=== PATIENT | female | born 1935 | race Caucasian/White ===

== ENCOUNTER 2017-09-19 08:13 | Inpatient (IN) | payer OTHER ==
[2017-08-16 13:43] VITALS: BMI 39.0
--- NOTE | 2017-08-16 14:14 | PAT Medication Instructions ---
Service Date Aug 16, 2017. Current Home Medication List Diphenhydramine Hcl (Benadryl Allergy), 1 CAP PO PRN Losartan Potassium (Cozaar), 100 MG PO QAM Meloxicam (Mobic), 15 MG PO DAILY Simethicone (Gas-X), 1 TAB PO PRN Medication Instructions For Your Scheduled Surgery - Hold the following medications 10 days prior to surgery per surgeon's instructions: Meloxicam (Mobic), 15 MG PO DAILY - Hold the following medications the morning of surgery: Losartan Potassium (Cozaar), 100 MG PO QAM Diphenhydramine Hcl (Benadryl Allergy), 1 CAP PO PRN Simethicone (Gas-X), 1 TAB PO PRN *Nothing to eat or drink after midnight* If you have any questions please call us at [phone] or [phone] or [phone]
[2017-08-16 14:54] LABS: BASO ABS # 0.07 K/uL (0-0.2); EOS % 2.4 %; EOS ABS # 0.17 K/uL (0-0.5); HEMATOCRIT 40.6 % (37-47); HEMOGLOBIN 13.5 g/dL (12.0-16.0); IG# 0.01 K/uL (0.00-0.02); LYMPH % 35.6 %; LYMPH ABS # 2.49 K/uL (1.2-3.4); MEAN CELL VOLUME 92.5 fL (80-100); MEAN CORPUSCULAR HEMOGLOBIN 30.8 pg (25-34); MEAN CORPUSCULAR HGB CONC 33.3 g/dl (32-36); MEAN PLATELET VOLUME 12.7 fL (7.4-10.4); MONO % 7.9 %; MONO ABS # 0.55 K/uL (0.11-0.59); NEUT ABS # 3.71 K/uL (1.4-6.5); PLATELET COUNT 196 K/uL (130-400); RED CELL DISTRIBUTION WIDTH CV 13.3 % (11.5-14.5)
[2017-08-16 15:05] LABS: PTT PATIENT 26.6 SECONDS (21.0-31.0)
--- NOTE | 2017-08-16 15:11 | DIAGNOSTIC IMAGING REPORT ---
CHEST 2 VIEWS ROUTINE CLINICAL HISTORY: PAT preoperative evaluation COMPARISON STUDY: No previous studies for comparison. FINDINGS: The bones soft tissues and hemidiaphragms are normal. The cardiomediastinal silhouette is normal. The lungs are clear. The pulmonary vasculature is normal. IMPRESSION: Negative chest. The above report was generated using voice recognition software. It may contain grammatical, syntax or spelling errors. Electronically signed by: Mando Tinoco M.D. 08/16/2017 3:10 PM Dictated Date/Time: 08/16/2017 3:10 PM
[2017-08-16 16:52] LABS: BLOOD UREA NITROGEN 22 mg/dl (7-18); CALCIUM 9.4 mg/dl (8.5-10.1); CARBON DIOXIDE 25 mmol/L (21-32); CREATININE 1.05 mg/dl (0.60-1.20); GLUCOSE 90 mg/dl (70-99); POTASSIUM 3.9 mmol/L (3.5-5.1); SODIUM 138 mmol/L (136-145)
--- NOTE | 2017-09-14 22:45 | HISTORY & PHYSICAL EXAMINATION ---
DATE OF ADMISSION: 09/19/2017 CHIEF COMPLAINT: Right knee pain. HISTORY OF PRESENT ILLNESS: The patient is a 81-year-old female who presents for surgical treatment of her right knee. She had a long history of knee problems and had her left knee replaced back in 2011. She had done well with that. Over the years, she has continued to have persistent and limiting right knee pain and discomfort. She has had global pain. It is very stiff as well. The more she walks, the more it hurts, and the more she limps. She has nighttime pain. She would like to have her right knee replaced. PAST MEDICAL HISTORY: 1. Hypertension. 2. Obesity with BMI 39. 3. Osteoarthritis. 4. GLUTEN SENSITIVITY. PAST SURGICAL HISTORY: Includes left knee replacement on 04/13/2012. ALLERGIES: None. SHE HAS GLUTEN SENSITIVITY. CURRENT MEDICINES: Include: 1. Meloxicam once a day. 2. Losartan. 3. Potassium. SOCIAL HISTORY: A 81-year-old female. She is . She lives in [facility]. Her is limited in his assistance due to Alzheimer/Parkinson disease. FAMILY HISTORY: Negative for blood clots, heart disease or diabetes. REVIEW OF SYSTEMS: Negative for diabetes, neurologic problems, vascular problems, bleeding disorders. No chest pain or shortness of breath. No history of DVT or PE. PHYSICAL EXAMINATION: GENERAL: Shows a healthy pleasant elderly female, who looks to be in pretty good health. HEENT: Benign. NECK: Supple. No lymphadenopathy. LUNGS: Clear to auscultation. HEART: Has a regular rate and rhythm. ABDOMEN: Soft, nontender, nondistended. EXTREMITIES: Grossly neurovascularly intact except as follows: Examination of the right knee reveals patient ambulates independently. She has got varus alignment to her knee. She has a fairly stiff knee with about 10 degree flexion contracture, can only flex to about 90 degrees. No instability. No pain with hip motion. X-RAYS: X-ray of the right knee reviewed. It shows advanced right knee DJD. She has complete loss of her medial joint space. She has got some tibiofemoral subluxation. She has got osteophytes in all 3 compartments. ASSESSMENT: A 81-year-old white female, 5 years out from left knee replacement with advanced right knee degenerative joint disease. She has failed conservative treatment and would like to have her right knee replaced. She has done well from the left knee standpoint. PLAN: We will take her to the operating room and do right total knee replacement. The risks and benefits of this procedure were explained to patient including but not limited to DVT, PE, , infection, neurological injury, vascular injury, bleeding problem, pain, limited range of motion, stiffness, failure to relieve her symptoms, incomplete relief of symptoms, need for further surgery in the future, fracture, leg length inequality, nerve palsy, etc. The patient understands and desires to proceed. Informed consent was obtained. We did talk to her about holding her Meloxicam 10 days preop. She is planning to be discharged to home and has no [facility]. Her daughter is going to come and stay with her for a while to assist in her care as well as her 's care.
[~2017-09-19] VITALS: Ht 157.5 cm; Wt 96.7 kg
[2017-09-19] VITALS (7 sets, daily range): BP systolic 119–176; BP diastolic 69–89; PULSE 87–98; TEMP 36.5–36.9; O2SAT 93–97; Ht 157.5 cm; Wt 96.7 kg
[~2017-09-19 08:13] MED LIST: ACETAMINOPHEN 500 MG TAB PO SCH; BUPIVACAINE 0.5 % 5 MG/1 ML PF 10ML VIAL ONE; BUPIVACAINE LIPOSOME 266 MG, BUPIVACAINE/EPINEPHRINE INJ 50 ML, SODIUM CHLORIDE 0.9% PF... INFIL SCH; CEFAZOLIN 2000MG IV PUSH 10 ML IV SCH; DIPH25CA65 PO; FAMOTIDINE 20 MG TAB PO SCH; GABAPENTIN 300 MG CAP PO SCH; LACTATED RINGER'S 1000ML 1,000 ML IV SCH; LACTATED RINGER'S 1000ML 500 ML IV SCH; LACTATED RINGER'S 1000ML IV SCH; LOSA1TAB38 PO; MELO7.5T5 PO; METOCLOPRAMIDE HCL 10 MG TAB PO SCH; SCOPOLAMINE 1.5 MG TDSY TD SCH; SIME80CH PO; TRANEXAMIC ACID INJ 1,000 MG in SYRINGE 0 ML IV SCH
--- NOTE | 2017-09-19 08:44 | History & Physical Bridge Note ---
H&P Re-Evaluation Bridge Note: I have examined the patient, reviewed the History & Physical and in the interval since the performance of the History & Physical I have noted the following changes of clinical significance: No changes noted
[2017-09-19] MEDS ORDERED: MIDAZOLAM HCL 1 MG/ML 2ML VIAL ONE ×2 (09:17→12:28)
[2017-09-19] MEDS ORDERED: ATROPINE SULFATE 0.1 MG/ML 5ML SYR IV PRN (10:00)
[2017-09-19] MEDS ORDERED: ONDANSETRON INJ 2 MG/ML 2 ML VIAL IV PRN (10:00)
[2017-09-19] MEDS ORDERED: EpHEDrine SULFATE INJ 50 MG/ML AMP IV PRN (10:00)
[2017-09-19] MEDS ORDERED: SODIUM CHLORIDE 0.9% PF 50 ML VIAL ONE (11:15)
[2017-09-19] MEDS ORDERED: BACITRACIN 50000 UNIT VIAL ONE (11:15)
[2017-09-19] MEDS ORDERED: BUPIVACAINE/EPINEPHRINE 0.25% 1:200,000 30 ML VIAL ONE (11:15)
[2017-09-19] MEDS ORDERED: BUPIVACAINE LIPOSOME 1/3% 266 MG/20 ML VIAL INFIL ONE (11:15)
[2017-09-19] MEDS ORDERED: FENTANYL CITRATE INJ 50 MCG/1 ML 2 ML VIAL ONE (11:59)
[2017-09-19] MEDS ORDERED: PHENYLEPHRINE 100MCG/ML 5ML SYR ONE (12:02)
[2017-09-19] MEDS ORDERED: LIDOCAINE HCL 2% 2 ML VIAL (20MG/ML) ONE (12:02)
[2017-09-19] MEDS ORDERED: PROPOFOL IV EMULSION 10 MG/ML 20 ML VIAL IV ONE (12:02)
--- NOTE | 2017-09-19 13:16 | [facility] Post Operative Brief Note ---
Immediate Operative Summary Operative Date Sep 19, 2017. Pre-Operative Diagnosis Advanced Right Knee Degenerative Joint Disease Post-Operative Diagnosis Advanced Right Knee Degenerative Joint Disease Procedure(s) Performed Right Total Knee Arthroplasty, Cemented Surgeon Dr. Mckeon Principal Technical Writer Surgeon(s) Jai Brown PA-C Estimated Blood Loss 50 mL Findings Right Knee DJD Fluids (cc crystalloids) 1800 cc Specimens A: Right Knee Bone and Tissue Drains None Anesthesia Spinal Complication(s) None Disposition Recovery Room / PACU
[2017-09-19] MEDS ORDERED: METOCLOPRAMIDE HCL INJ 5 MG/ML 2 ML VIAL IV PRN (13:30)
[2017-09-19] MEDS ORDERED: ZOLPIDEM TARTRATE 5 MG TAB PO PRN (13:30)
[2017-09-19] MEDS ORDERED: BISACODYL 10 MG SUPP PR PRN (13:30)
[2017-09-19] MEDS ORDERED: MAGNESIUM HYDROXIDE SUSP 30 ML UDC PO PRN (13:30)
[2017-09-19] MEDS ORDERED: CEFAZOLIN IV 2,000 MG in DEXTROSE 5% 50ML 50 ML IV SCH (13:30)
[2017-09-19] MEDS ORDERED: SILVER SULFADIAZINE 1% CR 50 GM JAR EXT PRN (13:30)
--- NOTE | 2017-09-19 13:54 | DIAGNOSTIC IMAGING REPORT ---
R KNEE 1 OR 2 VIEWS ROUTINE CLINICAL HISTORY: AP/LATERAL IN PACU RIGHT KNEE postoperative COMPARISON: None. DISCUSSION: Total right knee replacement. Good contact between prosthetic and underlying bone. Expected soft tissue postoperative changes. IMPRESSION: Anatomic alignment status post right knee arthroplasty. The above report was generated using voice recognition software. It may contain grammatical, syntax or spelling errors. Electronically signed by: Mando Tinoco M.D. 09/19/2017 1:52 PM Dictated Date/Time: 09/19/2017 1:52 PM
--- NOTE | 2017-09-19 13:57 | Anesthesiology Progress Note ---
Anesthesia Post Op Note Date & Time Sep 19, 2017 at 13:57 Vital Signs Pain Intensity: 0 Vital Signs Past 12 Hours Date Time Temp Pulse Resp B/P (MAP) Pulse Ox O2 Delivery O2 Flow Rate FiO2 09/19/17 13:23 36.1 94 16 97/47 94 Nasal Cannula 3 09/19/17 11:05 88 18 154/93 (113) 100 Oxymask 10 09/19/17 10:55 88 16 153/79 (103) 100 Oxymask 10 09/19/17 10:45 99 16 155/69 (97) 100 Oxymask 10 09/19/17 10:37 98 16 151/72 (98) 100 Oxymask 10 09/19/17 10:13 97 16 155/74 (101) 100 Oxymask 10 09/19/17 08:41 36.9 98 20 176/89 Room Air Notes Mental Status: alert / awake / arousable, participated in evaluation Pt Amnestic to Procedure: Yes Nausea / Vomiting: adequately controlled Pain: adequately controlled Airway Patency, RR, SpO2: stable & adequate BP & HR: stable & adequate Hydration State: stable & adequate Neuraxial Anesthesia: was administered, sensory block is resolving Anesthetic Complications: no major complications apparent
[2017-09-19] MEDS ORDERED: PHENYLEPHRINE HCL INJ 10 MG/ML VIAL ONE (13:59)
[2017-09-19] MEDS ORDERED: EpHEDrine SULFATE INJ 50 MG/ML AMP ONE (13:59)
[2017-09-19] MEDS: FENTANYL CITRATE INJ 50 MCG/1 ML 2 ML VIAL IV PRN ×4 (14:03→14:19)
--- NOTE | 2017-09-19 14:21 | OPERATIVE REPORT ---
DATE OF OPERATION: 09/19/2017 SURGEON: Jake Mckeon MD PACKING ATTENDANT: MYLES Curiel PREOPERATIVE DIAGNOSIS: Right knee degenerative joint disease. POSTOPERATIVE DIAGNOSIS: Same. PROCEDURE PERFORMED: Right cemented posterior stabilized total knee arthroplasty. COMPLICATIONS: None. ESTIMATED BLOOD LOSS: 50 mL FLUID REPLACEMENT: 1800 mL crystalloid fluid replacement. TOURNIQUET TIME: 54 minutes at 300 mmHg. ANESTHESIA: Spinal with adductor canal block. DRAINS: None. SPECIMENS: Right knee sent for pathology. OPERATIVE INDICATIONS: The patient is a 81-year-old very active and healthy female who has had a long history of knee problems. She underwent a left knee replacement 5 years ago and has done well from that. Over the past several years, she has developed progressive and increasing pain in her right knee. She failed conservative treatment. X-rays show advanced right knee DJD. She elected to proceed with total knee arthroplasty. OPERATIVE FINDINGS: Operative findings revealed advanced right knee DJD. She had extensive grade 4 changes in all 3 compartments, most severe in the medial side. She had osteophytes in all 3 compartments. She had a significant flexion contracture about 10-15 degrees. A very stiff knee with only about 90 degrees of knee bend. OPERATIVE IMPLANTS: Operative implants consisted of: 1. Biomet Vanguard size 57.5 right posterior stabilized femoral component. 2. Biomet size 63 tibial tray. 3. A 12-mm posterior stabilized polyethylene insert. 4. A 28 x 8 all poly patella. OPERATIVE PROCEDURE: The patient taken to the operating room, identified and placed on the operating table in supine position. All contact areas were appropriately padded. IV antibiotics were provided by the anesthesia team. A spinal anesthetic and adductor canal block had been provided in the holding area. Baltazar catheter was placed in sterile fashion. A right thigh tourniquet was then placed and the right lower extremity was then prepped and draped in the usual sterile fashion. The right leg was elevated and exsanguinated with an Esmarch and tourniquet was placed at 300 mmHg. An anterior approach to the right knee was then performed through a longitudinal incision centered over the patella. Sharp dissection was carried out through the subcutaneous tissues down to the level of the extensor mechanism. A medial parapatellar arthrotomy incision was made. Subperiosteal dissection was carried out medially. The fat pad was resected from beneath the patellar tendon. The lateral patellofemoral ligament was released. The patella was everted and knee was flexed. The osteophytes were taken off the distal femur. The ACL and PCL were then released from the distal femur and the tibia subluxated anteriorly. The external tibial alignment jig was then placed in the anterior face of the tibia and adjusted about 14 mm medially. Proximal tibial cut was made to remove about 2 mm of bone from the most deficient aspect of the medial tibial plateau. Some osteophytes were taken off medially and posteromedially. Tibia was sized to a size 63. Attention was then drawn to the femur. The distal femur was entered with a sharp drill. Intramedullary guide was placed. A right 5-degree valgus cutting guide was placed. The distal femoral cutting block was pinned in place. Distal femoral cut was made to take an additional 3 mm of bone off the distal femur. The femur was then sized to a size 57.5. We did downsize this slightly. The AP cutting block was pinned parallel to the epicondylar axis, which was 4 degrees of external rotation. The anterior cut, anterior chamfer, posterior cut, posterior chamfer cuts were made. Box cutting guide was placed and adjusted slightly lateral and the box cut was made. The knee was flexed. The remnants of the medial and lateral menisci were excised. The osteophytes were taken off the posterior aspect of the femur. A trial femoral component was placed. Tibial tray was pinned in maximum external rotation and drill and stem punch were used to create defect in proximal tibia for the tibial tray. The knee was then trialed and the 12-mm insert fit most appropriately. Attention was then drawn to the patella. The patella was cleaned of all soft tissues. Patella thickness measured 19 mm and was cut down to 13. It was sized to a size 28 patella. Lug holes were drilled for the 28 patella. Lateral osteophyte was removed. Patella button was placed. Knee was taken through range of motion and patella tracked nicely with no thumbs test. Attention was then drawn toward placement of the permanent components. All trial components were removed. Bone plug was placed in the distal femur to limit blood loss. A double batch of Palacos G cement was mixed. A right size 57.5 posterior stabilized femoral component, size 63 tibial tray, 12 mm posterior stabilized polyethylene insert, and a 28 x 8 all poly patella were then cemented in place. Knee was brought out into full extension until cement hardened. A final cement check was then performed. Pericapsular tissues were injected with a total of 100 mL of a combination of 20 mL of Exparel, 30 mL of normal saline, 50 mL of 0.25% Marcaine with epinephrine. The patient did receive 1 gram of tranexamic acid. The tourniquet was then let down for a final tourniquet time of 54 minutes. Hemostasis was assured with use of electrocautery. The wound was once again irrigated. The extensor mechanism was then closed with a combination of #1 PDS suture and #1 Vicryl suture in a [id number] fashion. Extensor mechanism was checked and found to be intact. The subcutaneous tissues were then closed with 2-0 Dexon suture in a buried interrupted fashion. Skin was closed with skin ruby. Leg was then cleaned and dried and a sterile dressing of Xeroform, 4 x 4's, sterile cast padding and Alejandro bandage were applied. The patient then transferred to the recovery room in stable condition. The patient tolerated the procedure well without complications. All needle and sponge counts were correct at the end of the operation. I attest to the content of the Intraoperative Record and any orders documented therein. Any exception s are noted below.
[2017-09-19] MEDS: HYDROmorphone INJ 0.5 MG/0.5 ML SYR IV PRN ×2 (14:24→14:44)
--- NOTE | 2017-09-19 15:51 | PROGRESS NOTE ---
DATE: 09/19/2017 DATE: 09/19/2017 SUBJECTIVE: A 81-year-old female postop from a right knee replacement. She is doing well. Pain is controlled. Denies any chest pain or shortness of breath. Not feeling dizzy or lightheaded. OBJECTIVE: VITAL SIGNS: Temperature 37.4. Vital signs stable. PHYSICAL EXAMINATION: GENERAL: Reveals a pleasant elderly female. She is lying in bed, looks pretty comfortable. She is just in the recovery room waiting for a room availability. LUNGS: Clear to auscultation. HEART: Regular rate and rhythm. ABDOMEN: Soft, nontender, nondistended. EXTREMITY EXAMINATION: Grossly neurovascularly intact except as follows: Examination of the right leg reveals the dressing to be clean, dry and intact. Leg is well aligned. She can dorsiflex and plantarflex her foot appropriately. She is neurologically intact. X-RAYS: X-rays of the right knee from recovery room were reviewed. It shows right cemented posterior stabilized total knee arthroplasty. Components are in good position. No signs of problems. She has got a good distal pulse. Brisk refill. ASSESSMENT: A 81-year-old white female postop from a right knee replacement, doing well. Pain is controlled. She is neurologically intact. PLAN: 1. DVT prophylaxis including thigh-high TEDs, SCDs, and aspirin twice a day. 2. PT/OT. Weight bear as tolerated. Right total knee protocol. 3. Pain control. Doing pretty well with current pain regimen. 4. IV antibiotics x24 hours. 5. Disposition. Plan to discharge to home likely with some home health and family assistance once medically stable.
[2017-09-19] MEDS: CHECK SCOPOLAMINE PATCH PLACEMENT SCH ×2 (16:08→23:41)
[2017-09-19] MEDS: KETOROLAC TROMETHAMINE 15 MG/ML VIAL IV. SCH ×2 (16:23→21:52)
[2017-09-19] MEDS: D5W AND 1/2NSS + 20MEQ KCL 1,000 ML IV SCH (16:24)
[2017-09-19] MEDS: ACETAMINOPHEN 500 MG TAB PO SCH ×2 (16:24→23:42)
[2017-09-19] MEDS: HYDROmorphone INJ 1 MG/ML SYR IV PRN (16:25)
[2017-09-19] MEDS: TRAMADOL HCL 50 MG TAB PO PRN (17:29)
[2017-09-19] MEDS: FERROUS GLUCONATE 324 MG TAB PO SCH (17:31)
[2017-09-19] MEDS: CEFAZOLIN IV 2,000 MG in SYRINGE 0 ML IV SCH (19:50)
[2017-09-19] MEDS ORDERED: TRANEXAMIC ACID INJ 1,000 MG in SODIUM CHLORIDE 0.9% 100ML 100 ML IV SCH (20:00)
[2017-09-19] MEDS: ONDANSETRON INJ 2 MG/ML 2 ML VIAL IV PRN (20:13)
[2017-09-19] MEDS: SENNA 8.6 MG TAB PO SCH (21:51)
[2017-09-19] MEDS: ASPIRIN 325 MG ECTAB PO SCH (21:51)
[2017-09-19] MEDS: DOCUSATE SODIUM 100 MG CAP PO SCH (21:51)
[2017-09-20] MEDS: D5W AND 1/2NSS + 20MEQ KCL 1,000 ML IV SCH ×2 (01:55→11:16)
[2017-09-20] MEDS: TRAMADOL HCL 50 MG TAB PO PRN ×4 (02:04→21:46)
[2017-09-20 03:30] VITALS: BP 105/64; PULSE 76; TEMP 36.7; O2SAT 95
[2017-09-20] MEDS: KETOROLAC TROMETHAMINE 15 MG/ML VIAL IV. SCH (03:34)
[2017-09-20] MEDS: CEFAZOLIN IV 2,000 MG in SYRINGE 0 ML IV SCH (03:35)
[2017-09-20 06:46] LABS: HEMATOCRIT 32.8 % (37-47); HEMOGLOBIN 10.8 g/dL (12.0-16.0); MEAN CELL VOLUME 93.2 fL (80-100); MEAN CORPUSCULAR HEMOGLOBIN 30.7 pg (25-34); MEAN CORPUSCULAR HGB CONC 32.9 g/dl (32-36); MEAN PLATELET VOLUME 11.4 fL (7.4-10.4); PLATELET COUNT 142 K/uL (130-400); RED CELL DISTRIBUTION WIDTH CV 13.2 % (11.5-14.5); RED CELL DISTRIBUTION WIDTH SD 44.5 fL (36.4-46.3); WHITE BLOOD COUNT 7.63 K/uL (4.8-10.8)
[2017-09-20] MEDS: CHECK SCOPOLAMINE PATCH PLACEMENT SCH ×2 (07:18→15:33)
[2017-09-20] MEDS: ACETAMINOPHEN 500 MG TAB PO SCH ×2 (07:18→15:35)
[2017-09-20 07:20] LABS: CALCIUM 7.9 mg/dl (8.5-10.1); CREATININE 1.5 mg/dl (0.60-1.20)
[2017-09-20 08:03] VITALS: BP 134/82; PULSE 72; TEMP 36.4; O2SAT 98
[2017-09-20 08:14] VITALS: O2SAT 98
[2017-09-20] MEDS: DOCUSATE SODIUM 100 MG CAP PO SCH ×2 (08:43→21:46)
[2017-09-20] MEDS: ASPIRIN 325 MG ECTAB PO SCH ×2 (08:43→21:46)
[2017-09-20] MEDS: LOSARTAN POTASSIUM 50 MG TAB PO SCH (08:43)
[2017-09-20] MEDS: MULTIVITAMIN TAB PO SCH (08:43)
[2017-09-20] MEDS: FERROUS GLUCONATE 324 MG TAB PO SCH ×3 (08:43→17:33)
[2017-09-20] MEDS: PANTOprazole SOD 40 MG TAB PO SCH (08:43)
--- NOTE | 2017-09-20 09:17 | Anesthesiology Progress Note ---
Anesthesia Post Op Note Date & Time Sep 20, 2017 at 09:16 Vital Signs Pain Intensity: 0.0 Vital Signs Past 12 Hours Date Time Temp Pulse Resp B/P (MAP) Pulse Ox O2 Delivery O2 Flow Rate FiO2 09/20/17 08:14 98 Room Air 09/20/17 08:03 36.4 72 18 134/82 (99) 98 Room Air 09/20/17 07:15 Room Air 09/20/17 03:30 36.7 76 18 105/64 (78) 95 Room Air 09/19/17 23:30 Room Air 09/19/17 23:05 36.6 89 18 119/72 (88) 95 Room Air Notes Mental Status: alert / awake / arousable, participated in evaluation Pt Amnestic to Procedure: Yes Nausea / Vomiting: adequately controlled Pain: adequately controlled Airway Patency, RR, SpO2: stable & adequate BP & HR: stable & adequate Hydration State: stable & adequate Neuraxial Anesthesia: sensory block resolved Anesthetic Complications: no major complications apparent
--- NOTE | 2017-09-20 09:54 | Clinical Documentation Query ---
CLINICAL DOCUMENTATION QUERY 81-y/o female who has undergone right TKR. POD #1 Creatinine has risen to 1.50 from 1.05. In your clinical opinion is this patient being managed for: ( x ) CRISTIAN treated with continued PRP monitoring and IVF's. ( ) Not Agree ( ) Other explanation of clinical findings (Please Explain) ( ) Unable to determine (Please Define) ( ) Need to Discuss The medical record reflects the following clinical findings, treatment, and risk factors. Clinical Indicators: As above. EBL 250 ml's, Low urine output 1st 8 hours after surgery of 200 ml's. Treatment: repeat PRP for 09/21, IVF's, Risk Factors: Age, surgery, Please clarify and document your clinical opinion in the progress notes and discharge summary. Terms such as "probable", "suspected", "likely", "questionable", "possible", or "still to be ruled out" are acceptable. IF IN AGREEMENT, YOU MUST DOCUMENT ABOVE DIAGNOSTIC STATEMENT IN DAILY PROGRESS NOTES AND DISCHARGE SUMMARY. This document is not part of the patient's record. AKIAcute Renal/Kidney Injury is defined as a rapid and usually reversible decline in GFR that may occur in the setting of normal renal function or with preexisting renal disease. Acute renal failure may present with a range of abnormal parameters. Current RIFLE criteria notes the following: "Patients can be classified either by GFR or by UO criteria." According to RIFLE, CRISTIAN is defined as any of the following: SCr increased 2-3x baseline or GFR decreased >50% or <0.5mL/kg/h > 12 hrs The EKTA criteria differ from the RIFLE criteria in several ways. The RIFLE criteria are defined as changes within 7 days, while the EKTA criteria suggest using 48 hours. The EKTA classification includes less severe injury in the criteria and EKTA also avoids using the glomerular filtration rate as a marker in CRISTIAN, as there is no dependable way to measure glomerular filtration rate and estimated glomerular filtration rate are unreliable in CRISTIAN. The criteria: Abrupt (within 48 h) reduction in kidney function currently defined as an absolute increase in serum creatinine of 0.3 mg/dL or more (=26.4 umol/L) or a percentage increase in serum creatinine of 50% or more (1.5-fold from baseline) or a reduction in urine output (documented oliguria of < 0.5 mL/kg/h for >6 h) In 2012 the Kidney Disease Improving Global Outcomes (KDIGO) released their clinical practice guidelines for acute kidney injury (CRISTIAN), which build off of the RIFLE criteria and the EKTA criteria. KDIGO defines CRISTIAN as any of the following: Increase in serum creatinine by 0.3mg/dL or more within 48 hours or increase in serum creatinine to 1.5 times baseline or more within the last 7 days or urine output less than 0.5 mL/kg/h for 6 hours Thank You, Ilya Vaca, RN [phone]
[2017-09-20 11:29] VITALS: BP 128/80; PULSE 74; TEMP 36.5; O2SAT 95
--- NOTE | 2017-09-20 14:29 | PROGRESS NOTE ---
DATE: 09/20/2017 SUBJECTIVE: A 81-year-old white female postop day #1 from a right knee replacement. She is doing well. Pain is controlled. Therapy went pretty well. No chest pain or shortness of breath. Not feeling dizzy or lightheaded. OBJECTIVE: VITAL SIGNS: Temperature 36.5. Vital signs stable. GENERAL: Reveals as a pleasant elderly female. She is sitting up in bed, looks pretty comfortable. EXTREMITIES: Examination of the right leg reveals the leg to be well aligned. She can dorsiflex and plantarflex her foot appropriately. She is neurologically intact. LABORATORY DATA: Hemoglobin is 10.8, hematocrit 32.8. Electrolytes with elevated creatinine of 1.50. Rest of her electrolytes are stable. ASSESSMENT: A 81-year-old white female postop day #1 from a right total knee replacement, doing pretty well. Creatinine is bumped up a bit. Likely due to dehydration, probably to possible Toradol use. PLAN: 1. DVT prophylaxis including thigh-high TEDs, SCDs, and aspirin twice a day. 2. PT/OT. Weightbearing as tolerated. Right total knee protocol. 3. Pain control, doing pretty well with current pain regimen. We are going to stop her Toradol due to her elevated creatinine. 4. Elevated creatinine. I am going to stop her Toradol. We will recheck her electrolytes tomorrow. 5. Disposition: She is planning to be discharged to home with likely some home health, once adequately recovered.
[2017-09-20 15:27] VITALS: BP 132/77; PULSE 80; TEMP 36.5; O2SAT 98
[2017-09-20] MEDS: ALUMINUM/MAGNESIUM/SIMETH (MAALOX MAX) 30 ML UDC PO PRN (15:42)
[2017-09-20] MEDS: ONDANSETRON INJ 2 MG/ML 2 ML VIAL IV PRN (17:36)
[2017-09-20] MEDS: HYDROmorphone INJ 1 MG/ML SYR IV PRN (19:12)
[2017-09-20] MEDS ORDERED: ACET-24 PO (21:01)
[2017-09-20] MEDS ORDERED: ULT50X PO (21:01)
[2017-09-20] MEDS ORDERED: FRRG PO (21:01)
[2017-09-20] MEDS ORDERED: ASPEC325 PO (21:01)
[2017-09-20] MEDS: SENNA 8.6 MG TAB PO SCH (21:46)
[2017-09-20 23:21] VITALS: BP 133/76; PULSE 92; TEMP 36.6; O2SAT 95
[2017-09-21] MEDS: TRAMADOL HCL 50 MG TAB PO PRN ×2 (05:49→09:56)
[2017-09-21 06:42] LABS: CALCIUM 8.8 mg/dl (8.5-10.1); CREATININE 1.24 mg/dl (0.60-1.20); POTASSIUM 4.5 mmol/L (3.5-5.1)
--- NOTE | 2017-09-21 07:15 | Discharge Instructions ---
Discharge Instructions Date of Service Sep 21, 2017. Admission Reason for Admission: Right Knee Degenerative Joint Disease Discharge Discharge Diagnosis / Problem: Right Knee Replacement Discharge Goals Goal(s): Decrease discomfort, Improve function, Increase independence, Improve disease control, Therapeutic intervention Activity Recommendations Activity Limitations: per Instructions/Follow-up section Weightbearing Status: Right weightbearing . Instructions / Follow-Up Instructions / Follow-Up ACTIVITY RECOMMENDATIONS: Physical Therapy: * You will go to physical therapy three times each week for four to six weeks after your surgery in order to regain your knee range of motion and to retrain your knee to work properly. * It is just as important to make sure you are getting your knee perfectly straight as it is to regain your knee bend. * Taking a pain pill an hour before therapy can help you have a more productive and comfortable therapy session. Home Exercise: * You were shown a series of exercises (heel props, heel slides, etc.) in the hospital. Do these exercises three to four times each day including the exercises you were shown in physical therapy. Walking: * Get up and walk several times each day. For the first four weeks, try not to stand or walk for more than one hour at a time. If you do stand or walk for more than one hour, you will not hurt anything, but your knee and leg will likely swell. * As you feel comfortable, you may change from the walker or crutches to a cane and then to independent walking. MEDICATIONS: New Medicine: * You will likely be taking one or more of these medications: 1. Tramadol - A quick and shorter-acting pain medication. Take one to two tablets every four to six hours to lessen your pain. 2. Iron Sulfate - Take three times each day for the month after surgery to help you replace the blood lost during surgery. 3. Aspirin - Thins your blood to lessen the chance of forming a blood clot. * The most common side effects of pain medicine and iron are nausea and constipation. If nausea or constipation is too much of a problem or if you have any questions about your new medicines or doses, call [facility] at [phone]. We will try to help you manage these issues. VERY IMPORTANT TO READ AND REVIEW" Pain: * The immediate post-operative period after knee replacement surgery is often quite painful. * You are given a prescription for pain medicine. You should take it, as directed, when you need it, especially before physical therapy and before going to bed. Pain that interferes with sleep is very common and can last several months. * You will likely need pain medicine for the first four to six weeks. It will not stop all of the pain. The pain will lessen and as you feel better, you may change to milder pain medicine such as Tylenol. * The most common side effects of pain medicine are nausea and constipation, so don't take more than you need. SPECIAL CARE INSTRUCTIONS: TEDs/Elastic Stockings: * The white elastic stockings help limit swelling and prevent blood clots from forming in your legs. The more you wear them, the more they work. * Wear them for six weeks after knee replacement surgery and four weeks after partial knee replacement. Prevention of Infection: * Take antibiotics one hour before any dental cleaning, dental work, urological procedure, gastrointestinal procedure or any invasive surgery in order to prevent your new joint from getting infected. * You may get the antibiotics from the doctor performing the procedure or you may call our office at before and we will call in a prescription to the pharmacy of your choice. Things to Watch For: * Drainage from the incision site that occurs more than one week after your surgery. * Severely increased knee/leg pain or swelling. * Increased redness at the incision site. * Fever above 102 degrees Fahrenheit. * Unusual chest pain or shortness of breath. * Unusual pain or burning with urination. Call [facility] at with any of the above problems or if you have any questions about your medicines or recovery. FOLLOW UP VISIT: Make an appointment to see your doctor for approximately two weeks after surgery for a progress check and staple removal by calling the office at . Current Hospital Diet Patient's current hospital diet: Gluten Free Diet Discharge Diet Recommended Diet: Gluten Free Diet Procedures Procedures Performed: Right Total Knee Arthroplasty, Cemented Pending Studies Studies pending at discharge: no Medical Emergencies . Who to Call and When: Medical Emergencies: If at any time you feel your situation is an emergency, please call [phone] immediately. . Non-Emergent Contact Non-Emergency issues call your: Surgeon . "Provider Documentation" section prepared by Jake Mckeon. . VTE Core Measure Inpt VTE Proph given/why not?: Other Anticoagulation, T.E.D. Stockings, SCD's
--- NOTE | 2017-09-21 07:27 | PROGRESS NOTE ---
DATE: 09/21/2017 SUBJECTIVE: A 81-year-old white female postop day 2 from right knee replacement. She is doing pretty well. Pain seems to be reasonably well controlled. No chest pain or shortness of breath. Not feeling dizzy or lightheaded. OBJECTIVE: VITAL SIGNS: Temperature is 36.6. Vital signs stable. GENERAL: Reveals a pleasant elderly female. She is lying in bed, looks reasonably comfortable. EXTREMITIES: Examination of the right leg reveals the dressing to be clean, dry and intact. Leg is well aligned. She can dorsiflex and plantarflex her foot appropriately. She is neurologically intact. LABORATORY DATA: Electrolytes are improved. Creatinine is improved at 1.24. ASSESSMENT: A 81-year-old white female postop day 2 from right knee replacement, doing pretty well. Pain is reasonably well controlled. PLAN: 1. DVT prophylaxis including thigh high TEDs, SCDs, and aspirin twice daily. 2. PT, OT. Weightbearing as tolerated. Right total knee protocol. 3. Pain control. Doing pretty well with current pain regimen. Her creatinine is improved. 4. Elevated creatinine. This has improved likely with hydration and just stopping her Toradol. 5. Disposition. Plan to discharge to home. She is going to do outpatient therapy.
[2017-09-21 07:45] VITALS: BP 163/74; PULSE 96; TEMP 36.5; O2SAT 96
[2017-09-21] MEDS: CHECK SCOPOLAMINE PATCH PLACEMENT SCH ×2 (08:00)
[2017-09-21] MEDS: ACETAMINOPHEN 500 MG TAB PO SCH ×2 (08:10)
[2017-09-21] MEDS: ALUMINUM/MAGNESIUM/SIMETH (MAALOX MAX) 30 ML UDC PO PRN (08:12)
[2017-09-21] MEDS: FERROUS GLUCONATE 324 MG TAB PO SCH (08:30)
[2017-09-21] MEDS: MULTIVITAMIN TAB PO SCH (09:25)
[2017-09-21] MEDS: LOSARTAN POTASSIUM 50 MG TAB PO SCH (09:25)
[2017-09-21] MEDS: PANTOprazole SOD 40 MG TAB PO SCH (09:26)
[2017-09-21] MEDS: ASPIRIN 325 MG ECTAB PO SCH (09:56)
[2017-09-21] MEDS: DOCUSATE SODIUM 100 MG CAP PO SCH (09:56)
[2017-09-21 10:30] VITALS: BP 163/74; PULSE 96; TEMP 36.5; O2SAT 96
--- NOTE | 2017-09-27 16:43 | DISCHARGE SUMMARY ---
ADMITTING PHYSICIAN AND SURGEON: Dr. Mckeon. ADMITTING DIAGNOSIS: Right knee degenerative joint disease. SURGERY PERFORMED: Right total knee arthroplasty. SECONDARY DIAGNOSES: Hypertension, obesity, osteoarthritis, and gluten sensitivity. HISTORY AND PHYSICAL EXAMINATION: Well documented in the patient's chart. HOSPITAL COURSE: The patient was admitted on 09/19/2017 and underwent total knee arthroplasty. She tolerated the procedure well. There were no complications. She was transferred to the PACU postoperatively and later to the orthopedic floor for further care. She was given Ancef for antibiotic prophylaxis and KEEGAN stockings, SCDs and aspirin for DVT prophylaxis. Hemoglobin, hematocrit and vital signs were monitored during her hospital stay and remained stable. She developed some postoperative anemia, but did not require any blood transfusions. There were no complications. By postoperative day #2, she was tolerating a gluten free diet. Pain was controlled with oral pain medicine. She was participating in physical therapy and had no signs or symptoms of deep vein thrombosis. On postoperative day #2, she was discharged home. She was given printed discharge instructions including prescriptions for extra strength Tylenol, aspirin 325 mg b.i.d., iron supplement and tramadol. Continue her home medications, continue physical therapy, weightbearing as tolerated and KEEGAN stockings. Follow up in 10-12 days or sooner if there are any problems or concerns.
== END 2017-09-21 12:45 | disposition home or self-care (01) | DRG 470 ==
LOC: C.ACU 08:13 → C.3E 09:35 → CANRESERV 15:23 → ENRESERV 15:23
PROVIDERS: ADMIT Orthopaedic Surgery Sports Medicine; ATTEND Orthopaedic Surgery Sports Medicine
PROC: 0SRC0J9 Replacement of Right Knee Joint with Synthetic Substitute, Cemented, Open Approach (ICD-10-PCS; principal; 2017-09-19 11:05)
DX: M17.11 Unilateral primary osteoarthritis, right knee (principal); K90.41 Non-celiac gluten sensitivity; E66.9 Obesity, unspecified; Z68.39 Body mass index [BMI] 39.0-39.9, adult; Z96.652 Presence of left artificial knee joint